=== PATIENT | female | born 1935 | race African-American/Black ===

== ENCOUNTER 2020-05-24 20:07 | Inpatient (IN) ==
[2020-05-24] MEDS ORDERED: MORPHINE 4 MG/1 ML VIAL IV PRN (23:03)
[2020-05-24] MEDS ORDERED: ONDANSETRON 4 MG/2 ML VIAL IV PRN (23:03)
[2020-05-24] MEDS ORDERED: GLUCAGON 1 MG VIAL IM PRN (23:03)
[2020-05-24] MEDS ORDERED: ALBUTEROL 2.5 MG/3 ML NEB RESP TX PRN (23:03)
[2020-05-24] MEDS ORDERED: LACTATED RINGERS 1,000 ML IV SCH (23:30)
[2020-05-25] MEDS: cefTRIAXone 1,000 MG in SYRINGE 1 EACH IV SCH (02:05)
[2020-05-25] MEDS: metroNIDAZOLE INJ 500 MG in PREMIX 1 EACH IV SCH ×3 (02:09→16:48)
[2020-05-25 06:00] LABS: Basophils % 0.4 % (0.0-0.8); Eosinophils # 0.3 10*3/uL (0.0-0.87); Hematocrit 34.8 VOL% (35.7-47.0); Hemoglobin 11.7 GM/DL (12.0-16.0); Immature Granulocytes % 0.5 %; Immature Granulocytes Absolute 0.06 #; Lymphocytes # 1.4 10*3/uL (1.4-4.0); Lymphocytes % 11.9 % (21.3-54.2); Mean Corpuscular HGB Conc 33.6 GM/DL (32-36); Mean Corpuscular Volume 88.1 FL (87-102); Mean Platelet Volume 10.6 FL (9.6-12.0); Monocytes % 8.5 % (1.7-12.7); Neutrophils % 75.7 % (38.7-73.9); Platelet Count 231 T/CUMM (130-400); Red Blood Count 3.95 MC/CUMM (3.8-5.5); Red Cell Distribution Width 15.8 % (9.3-17.3); White Blood Count 11.4 T/CUMM (4-12)
[2020-05-25 06:54] LABS: Albumin 2.6 G/DL (3.4-5.0); Bilirubin,Total 0.5 MG/DL (0.2-1.0); Calcium 9.4 MG/DL (8.5-10.1); Osmolality,Calculated 283.5 MOS/KG (273-304); Total Protein 6.7 G/DL (6.4-8.3)
[2020-05-25 07:34] LABS: Hepatitis B Core IgM Quant 0.18 Index; Hepatitis B Surface Ag Quant < 0.10 Index; Hepatitis B Surface Ag Result Negative (Negative); Hepatitis C Virus Ab Quant 0.05 Index; Hepatitis C Virus Ab Result Negative (Negative)
[2020-05-25] MEDS: DEXTROSE 50% 25 GM/50 ML VIAL IV PRN (08:12)
[2020-05-25] MEDS: HEPARIN 5,000 UNIT/1 ML VIAL SUBCUT SCH ×2 (08:13→22:25)
[2020-05-25] MEDS: PANTOPRAZOLE 40 MG VIAL IV SCH (08:14)
[2020-05-25] MEDS: INSULIN LISPRO 100 UNIT/ML SUBCUT SCH ×4 (08:37→23:07)
[2020-05-25] MEDS: DEXTROSE 5% NACL 0.45% 1,000 ML IV SCH (15:55)
[2020-05-25] MEDS: PHENOL 1.4% THROAT SPRAY 177 ML BOTTLE PO PRN (22:24)
[2020-05-26] MEDS: cefTRIAXone 1,000 MG in SYRINGE 1 EACH IV SCH (01:04)
[2020-05-26] MEDS: metroNIDAZOLE INJ 500 MG in PREMIX 1 EACH IV SCH ×3 (01:13→16:30)
[2020-05-26] MEDS: PHENOL 1.4% THROAT SPRAY 177 ML BOTTLE PO PRN ×2 (01:15→04:07)
[2020-05-26 06:07] LABS: Basophils % 0.3 % (0.0-0.8); Eosinophils # 0.3 10*3/uL (0.0-0.87); Eosinophils % 2.6 % (0.00-10.9); Hematocrit 34.5 VOL% (35.7-47.0); Hemoglobin 11.2 GM/DL (12.0-16.0); Immature Granulocytes % 0.6 %; Immature Granulocytes Absolute 0.07 #; Lymphocytes # 0.9 10*3/uL (1.4-4.0); Lymphocytes % 7.2 % (21.3-54.2); Mean Corpuscular HGB Conc 32.5 GM/DL (32-36); Mean Corpuscular Volume 88.7 FL (87-102); Mean Platelet Volume 10.7 FL (9.6-12.0); Monocytes % 10.2 % (1.7-12.7); Neutrophils % 79.1 % (38.7-73.9); Platelet Count 229 T/CUMM (130-400); Red Blood Count 3.89 MC/CUMM (3.8-5.5); White Blood Count 12.3 T/CUMM (4-12)
[2020-05-26 06:22] LABS: Calcium 8.8 MG/DL (8.5-10.1); Osmolality,Calculated 290.6 MOS/KG (273-304)
[2020-05-26] MEDS: DEXTROSE 50% 25 GM/50 ML VIAL IV PRN (08:00)
[2020-05-26] MEDS: INSULIN LISPRO 100 UNIT/ML SUBCUT SCH ×3 (08:13→16:31)
[2020-05-26] MEDS: POTASSIUM CHLORIDE INJ 40 MEQ in DEXTROSE 5% NACL 0.22% 1,000 ML IV SCH ×2 (08:35→21:00)
[2020-05-26] MEDS: HEPARIN 5,000 UNIT/1 ML VIAL SUBCUT SCH ×2 (09:43→21:05)
[2020-05-26] MEDS: PANTOPRAZOLE 40 MG VIAL IV SCH ×2 (09:43→20:49)
[2020-05-26] MEDS: DEXTROSE 5% NACL 0.45% 1,000 ML IV SCH (11:40)
[2020-05-26] MEDS: METOCLOPRAMIDE 10 MG/10 ML UDCUP PO SCH (20:55)
[2020-05-27] MEDS: cefTRIAXone 1,000 MG in SYRINGE 1 EACH IV SCH (00:22)
[2020-05-27] MEDS: metroNIDAZOLE INJ 500 MG in PREMIX 1 EACH IV SCH ×3 (00:35→17:05)
[2020-05-27 05:51] LABS: Basophils # 0.1 10*3/uL (0.0-0.2); Basophils % 0.5 % (0.0-0.8); Eosinophils # 0.3 10*3/uL (0.0-0.87); Eosinophils % 2.2 % (0.00-10.9); Hematocrit 34.2 VOL% (35.7-47.0); Hemoglobin 11.1 GM/DL (12.0-16.0); Immature Granulocytes % 0.6 %; Immature Granulocytes Absolute 0.08 #; Lymphocytes # 1.2 10*3/uL (1.4-4.0); Lymphocytes % 8.8 % (21.3-54.2); Mean Corpuscular HGB Conc 32.5 GM/DL (32-36); Mean Corpuscular Volume 89.3 FL (87-102); Mean Platelet Volume 10.1 FL (9.6-12.0); Monocytes % 10.4 % (1.7-12.7); Neutrophils % 77.5 % (38.7-73.9); Platelet Count 215 T/CUMM (130-400); Red Blood Count 3.83 MC/CUMM (3.8-5.5); White Blood Count 13.1 T/CUMM (4-12)
[2020-05-27] MEDS: INSULIN LISPRO 100 UNIT/ML SUBCUT SCH ×5 (05:52→21:48)
[2020-05-27 06:18] LABS: Alanine Aminotransferase 177 U/L (13-56); Albumin 2.1 G/DL (3.4-5.0); Alkaline Phosphatase 111 U/L (45-117); Aspartate Amino Transferase 152 U/L (0-37); Bilirubin,Indirect 0.3 MG/DL (0.0-1.0); Bilirubin,Total < 0.39 MG/DL (0.2-1.0); Total Protein 5.7 G/DL (6.4-8.3)
[2020-05-27 06:19] LABS: Albumin 1.9 G/DL (3.4-5.0); Bilirubin,Total 0.7 MG/DL (0.2-1.0); Calcium 8.5 MG/DL (8.5-10.1); Osmolality,Calculated 288.7 MOS/KG (273-304); Total Protein 5.6 G/DL (6.4-8.3)
[2020-05-27] MEDS: PHENOL 1.4% THROAT SPRAY 177 ML BOTTLE PO PRN ×2 (10:40→13:04)
[2020-05-27] MEDS: METOCLOPRAMIDE 10 MG/10 ML UDCUP PO SCH ×2 (10:40→23:15)
[2020-05-27] MEDS: HEPARIN 5,000 UNIT/1 ML VIAL SUBCUT SCH ×2 (10:40→21:55)
[2020-05-27] MEDS: BENZOCAINE/MENTHOL LOZENGE 18/BOX PO PRN ×3 (11:59→17:04)
[2020-05-27] MEDS: PANTOPRAZOLE 40 MG VIAL IV SCH ×2 (13:46→21:55)
[2020-05-27] MEDS ORDERED: ACETAMINOPHEN 650 MG SUPP RECTAL PRN (16:58)
[2020-05-27] MEDS: POTASSIUM CHLORIDE INJ 40 MEQ in DEXTROSE 5% NACL 0.22% 1,000 ML IV SCH (17:05)
[2020-05-27] MEDS ORDERED: AZITHROMYCIN INJ 500 MG in SODIUM CHLORIDE 0.9% 250 ML IV SCH (18:00)
[2020-05-27 21:16] LABS: ABG Base Excess 1.2 MMOL/L (-2.5-2.5); ABG HCO3 25.2 MMOL/L (20-26); ABG PCO2 44.2 MM HG (35-48); ABG PH 7.386 (7.35-7.45); ABG PO2 43.9 MM HG (80-95); ABG TCO2 24.1 MMOL/L (23-27); Allen Test Positive; Pt O2 Delivery Device Venturi Mask
[2020-05-27 21:37] LABS: ABG Base Excess 1.2 MMOL/L (-2.5-2.5); ABG HCO3 25.1 MMOL/L (20-26); ABG Oxygen Saturation 80.9 % (95-100); ABG PCO2 44.1 MM HG (35-48); ABG PH 7.386 (7.35-7.45); ABG PO2 46.6 MM HG (80-95); Allen Test Positive; Pt O2 Delivery Device Venturi Mask
[2020-05-27] MEDS: CEFEPIME 1,000 MG in SODIUM CHLORIDE 0.9% 100 ML IV SCH (21:48)
[2020-05-27] MEDS: ALBUTEROL/IPRATROPIUM 3 ML NEB RESP TX SCH (23:05)
[2020-05-27] MEDS: MIRTAZAPINE 15 MG TABLET PO SCH (23:14)
[2020-05-27] MEDS: AMIODARONE 200 MG TABLET PO SCH (23:14)
[2020-05-27] MEDS: ATORVASTATIN 80 MG TABLET PO SCH (23:15)
[2020-05-27] MEDS: VANCOMYCIN INJ 1,250 MG in SODIUM CHLORIDE 0.9% 250 ML IV SCH (23:22)
[2020-05-28 00:01] LABS: ABG Base Excess 0.6 MMOL/L (-2.5-2.5); ABG HCO3 24.8 MMOL/L (20-26); ABG Oxygen Saturation 89.7 % (95-100); ABG PH 7.379 (7.35-7.45); ABG PO2 58.8 MM HG (80-95); ABG TCO2 23.6 MMOL/L (23-27); Allen Test Positive; Pt O2 Delivery Device BIPAP
[2020-05-28] MEDS: metroNIDAZOLE INJ 500 MG in PREMIX 1 EACH IV SCH ×2 (00:54→11:13)
[2020-05-28] MEDS: ALBUTEROL/IPRATROPIUM 3 ML NEB RESP TX SCH ×6 (03:15→20:03)
[2020-05-28 07:32] LABS: ABG Base Excess -0.6 MMOL/L (-2.5-2.5); ABG HCO3 24.5 MMOL/L (20-26); ABG Oxygen Saturation 88.3 % (95-100); ABG PH 7.384 (7.35-7.45); ABG PO2 54.6 MM HG (80-95); ABG TCO2 25.8 MMOL/L (23-27)
[2020-05-28] MEDS: INSULIN LISPRO 100 UNIT/ML SUBCUT SCH ×3 (08:34→17:30)
[2020-05-28] MEDS: METOCLOPRAMIDE 10 MG/10 ML UDCUP PO SCH ×2 (10:29→21:54)
[2020-05-28] MEDS: amLODIPine 10 MG TABLET PO SCH (10:30)
[2020-05-28] MEDS: AMIODARONE 200 MG TABLET PO SCH ×2 (10:30→21:54)
[2020-05-28] MEDS: MEMANTINE 5 MG TABLET PO SCH (10:30)
[2020-05-28] MEDS: LOSARTAN 50 MG TABLET PO SCH (10:30)
[2020-05-28] MEDS: FUROSEMIDE 40 MG/4 ML VIAL IV SCH ×2 (11:13→17:29)
[2020-05-28] MEDS: HEPARIN 5,000 UNIT/1 ML VIAL SUBCUT SCH ×2 (11:14→21:50)
[2020-05-28] MEDS: PANTOPRAZOLE 40 MG VIAL IV SCH ×2 (11:16→21:49)
[2020-05-28] MEDS: CEFEPIME 1,000 MG in SODIUM CHLORIDE 0.9% 100 ML IV SCH (11:35)
[2020-05-28 14:46] LABS: Basophils # 0.1 10*3/uL (0.0-0.2); Basophils % 0.3 % (0.0-0.8); Eosinophils # 0.1 10*3/uL (0.0-0.87); Eosinophils % 0.6 % (0.00-10.9); Hematocrit 37.4 VOL% (35.7-47.0); Hemoglobin 12.1 GM/DL (12.0-16.0); Immature Granulocytes Absolute 0.19 #; Lymphocytes # 0.5 10*3/uL (1.4-4.0); Lymphocytes % 2.6 % (21.3-54.2); Mean Corpuscular HGB Conc 32.4 GM/DL (32-36); Mean Corpuscular Volume 89.7 FL (87-102); Mean Platelet Volume 10.5 FL (9.6-12.0); Monocytes % 6.3 % (1.7-12.7); Neutrophils % 89.2 % (38.7-73.9); Platelet Count 222 T/CUMM (130-400); Red Blood Count 4.17 MC/CUMM (3.8-5.5); White Blood Count 19.3 T/CUMM (4-12)
[2020-05-28 15:11] LABS: Albumin 2.1 G/DL (3.4-5.0); Bilirubin,Total 0.8 MG/DL (0.2-1.0); Calcium 9.2 MG/DL (8.5-10.1); Osmolality,Calculated 279.7 MOS/KG (273-304); Total Protein 6.4 G/DL (6.4-8.3)
[2020-05-28 15:39] LABS: ABG Base Excess -0.8 MMOL/L (-2.5-2.5); ABG HCO3 23.3 MMOL/L (20-26); ABG Oxygen Saturation 77.6 % (95-100); ABG PCO2 38.8 MM HG (35-48); ABG PH 7.396 (7.35-7.45); ABG PO2 42.6 MM HG (80-95); ABG TCO2 21.3 MMOL/L (23-27)
[2020-05-28 18:37] LABS: Anisocytosis 4+; Lymphocytes 3 % (20-55); Segmented Neutrophils 90 % (50-85); Total Cells Counted 100
[2020-05-28 18:38] LABS: Burr Cells 4+; Hypochromasia 4+; Microcytosis 4+; Platelet Estimate Normal
[2020-05-28] MEDS: MIRTAZAPINE 15 MG TABLET PO SCH (21:54)
[2020-05-28] MEDS: ATORVASTATIN 80 MG TABLET PO SCH (21:54)
[2020-05-29] MEDS: CEFEPIME 1,000 MG in SODIUM CHLORIDE 0.9% 100 ML IV SCH ×2 (00:48→11:46)
[2020-05-29] MEDS: POTASSIUM CHLORIDE INJ 40 MEQ in DEXTROSE 5% NACL 0.22% 1,000 ML IV SCH ×2 (00:49→13:07)
[2020-05-29] MEDS: ALBUTEROL/IPRATROPIUM 3 ML NEB RESP TX SCH ×4 (00:58→11:57)
[2020-05-29] MEDS: INSULIN LISPRO 100 UNIT/ML SUBCUT SCH ×3 (01:07→12:09)
[2020-05-29] MEDS: VANCOMYCIN INJ 1,250 MG in SODIUM CHLORIDE 0.9% 250 ML IV SCH (02:10)
[2020-05-29 02:30] LABS: ABG Base Excess -1.4 MMOL/L (-2.5-2.5); ABG HCO3 23.2 MMOL/L (20-26); ABG Oxygen Saturation 98.7 % (95-100); ABG PH 7.378 (7.35-7.45); ABG TCO2 21.2 MMOL/L (23-27); Allen Test Positive; Pt O2 Delivery Device BIPAP
[2020-05-29 05:15] LABS: Basophils % 0.2 % (0.0-0.8); Eosinophils # 0.1 10*3/uL (0.0-0.87); Eosinophils % 0.3 % (0.00-10.9); Hematocrit 35.5 VOL% (35.7-47.0); Hemoglobin 11.6 GM/DL (12.0-16.0); Lymphocytes # 1.1 10*3/uL (1.4-4.0); Lymphocytes % 5.6 % (21.3-54.2); Mean Corpuscular HGB Conc 32.7 GM/DL (32-36); Mean Platelet Volume 10.6 FL (9.6-12.0); Monocytes % 6.7 % (1.7-12.7); Neutrophils % 86.2 % (38.7-73.9); Platelet Count 216 T/CUMM (130-400); Red Blood Count 3.99 MC/CUMM (3.8-5.5); Red Cell Distribution Width 15.9 % (9.3-17.3); White Blood Count 19.2 T/CUMM (4-12)
[2020-05-29 06:50] LABS: Albumin 2.1 G/DL (3.4-5.0); Bilirubin,Total 1.2 MG/DL (0.2-1.0); Calcium 9.4 MG/DL (8.5-10.1); Osmolality,Calculated 290.1 MOS/KG (273-304); Total Protein 6.4 G/DL (6.4-8.3)
[2020-05-29] MEDS: FUROSEMIDE 40 MG/4 ML VIAL IV SCH (11:07)
[2020-05-29] MEDS: AMIODARONE 200 MG TABLET PO SCH (11:33)
[2020-05-29] MEDS: METOCLOPRAMIDE 10 MG/10 ML UDCUP PO SCH (11:34)
[2020-05-29] MEDS: MEMANTINE 5 MG TABLET PO SCH (11:34)
[2020-05-29] MEDS: PANTOPRAZOLE 40 MG VIAL IV SCH (11:35)
[2020-05-29] MEDS: HEPARIN 5,000 UNIT/1 ML VIAL SUBCUT SCH (11:36)
[2020-05-29] MEDS: LOSARTAN 50 MG TABLET PO SCH (11:41)
[2020-05-29] MEDS: amLODIPine 10 MG TABLET PO SCH (11:41)
[2020-05-29 12:02] VITALS: BP 118/55
== END 2020-05-29 12:50 | disposition expired | DRG 388 ==
LOC: N.3E 22:18 → N.CC 05-28 12:09 → N.3E 05-28 13:25
PROVIDERS: ADMIT Internal Medicine; ATTEND Emergency Medicine